=== PATIENT | female | born 1935 | race Caucasian/White ===

== ENCOUNTER 2022-04-16 22:36 | Emergency (ER) | payer SELFPAY ==
--- NOTE | 2022-04-16 22:47 | PC.NURSE ---
Called pt for triage but she is going to the bathroom in the lobby
[2022-04-16 22:53] VITALS: BP 179/98; PULSE 78; RESP 18; TEMP 36.6; O2SAT 97; BMI 25.4
--- NOTE | 2022-04-16 23:01 | DI.CT.S_ITS ---
PROCEDURE: CT HEAD/BRAIN WO CON INDICATIONS: fell, hit head, on thinners TECHNIQUE: Noncontrast 5 mm thick angled axial sections acquired from the foramen magnum to the vertex, with coronal and sagittal reformats. For radiation dose reduction, the following was used: automated exposure control, adjustment of mA and/or kV according to patient size. COMPARISON: None. FINDINGS: Image quality: Excellent. CSF spaces: Basal cisterns are patent. No extra-axial fluid collections. There is moderate cerebral volume loss, with resultant ventricular and sulcal prominence. Brain: No intracranial hemorrhage, mass, or mass effect. There are subcortical, periventricular and deep white matter hypodensities consistent with moderate chronic small vessel ischemic changes. The silverio-white matter junction appears preserved. There is intracranial internal carotid artery atherosclerosis. Skull and face: Calvarium and visualized facial bones appear intact, without suspicious lesions. There is mild soft tissue swelling in the forehead region. Sinuses: Visualized sinuses demonstrate sequelae of prior sinus surgery. There is mucosal thickening within the visualized ethmoid, maxillary, and sphenoid sinuses. Mastoid air cells are clear. IMPRESSION: 1. No acute intracranial abnormality. 2. Moderate cerebral volume loss and chronic white matter small vessel ischemic changes. Dictated by: Davon Frost M.D. on 04/16/2022 at 23:26 Approved by: Davon Frost M.D. on 04/16/2022 at 23:28
--- NOTE | 2022-04-17 00:11 | ED_ITS ---
HPI - Fall General Chief Complaint: Fall Stated Complaint: GLF hit her head, blood thinners Time Seen by Provider: 04/17/22 00:11 Mode of arrival: Wheelchair History of Present Illness HPI Narrative: 87-year-old female nonsmoker with history of AFib on anticoagulation presents with her son and a chief complaint of a ground level fall and head injury resulting in a laceration. She states that she stumbled forward getting off the toilet and struck her head. She has full recall and denies any blurred vision, vomiting or loss of consciousness. She has no chest pain or shortness of breath and denies other injury. She is activated as a modified trauma given head injury on anticoagulant Related Data Allergies Allergy/AdvReac Type Severity Reaction Status Date / Time No Known Drug Allergies Allergy Verified 04/16/22 22:59 Review of Systems Review of Systems Narrative: GENERAL: Denies chills, fatigue, malaise, fever, sweats. HEENT: Denies sinus pain, ear pain, sore throat, difficulty swallowing, dizziness. RESPIRATORY: Denies dyspnea, cough, wheezing, hemoptysis, sputum. CARDIOVASCULAR: Denies chest pain, palpitations, orthopnea, edema, GASTROINTESTINAL: Denies nausea, vomiting, abdominal pain, diarrhea, constipation, melena. : Denies dysuria, frequency, incontinence, hematuria, urinary retention. MUSCULOSKELETAL: denies weakness, joint pain, or bony pain SKIN: See HPI NEUROLOGIC: Denies weakness, headache, numbness, change in speech, confusion, seizures, incoordination. PSYCHIATRIC: No concerning psychosocial issues. 12 point review of systems is negative except for those stated above Patient History Social History Smoking Status: Never smoker Smoking Status: Never smoker alcohol intake frequency: 0-2 drinks per day Substance Use Type: does not use Exam Narrative Exam Narrative: GENERAL: [87] year old patient appears stated age. Well-developed patient, in mild distress. GCS 15 HEAD: 1.5 cm stellate laceration with adjacent skin tear on forehead, no evidence of depressed skull fracture EYES: Pupils equal round and reactive. No hyphema Extraocular motions intact. No scleral icterus. No injection or drainage. ENT: Nose without bleeding, purulent drainage. Throat without erythema, tonsillar hypertrophy or exudate. Airway patent. NECK: Trachea midline. Non tender CARDIOVASCULAR: Regular rate and rhythm without murmurs, gallops, or rubs. RESPIRATORY: Clear to auscultation. Breath sounds equal bilaterally. No wheezes, rales, or rhonchi. GASTROINTESTINAL: Abdomen soft, non-tender, nondistended. EXTREMITIES: No edema or joint tenderness. BACK: Nontender without deformity or crepitance. No flank tenderness. NEURO: AOx3. SKIN: No rash or erythema of visible areas Initial Vital Signs Initial Vital Signs: Vital Signs Temperature 97.8 F 04/16/22 22:53 Pulse Rate 78 04/16/22 22:53 Respiratory Rate 18 04/16/22 22:53 Blood Pressure 179/98 H 04/16/22 22:53 Pulse Oximetry 97 04/16/22 22:53 Oxygen Delivery Method 04/16/22 22:53 Procedures Laceration Repair Laceration 1: Site: face Size (cm): 1.5 Description: stellate and clean Depth: simple, single layer Local Anesthetic: lidocaine 2% Amount of anesthesia used (mL): 3 Pre-repair: wound explored and cleansed with chlorhexadine Skin layer closed with: nylon Skin layer suture size: 5-0 Number of sutures: 3 Technique: simple, interrupted Course Orders Ordered: ED Orders 04/16/22 23:01 CT head/brain wo con Stat Vital Signs Vital signs: Vital Signs - 8 hr 04/16/22 22:53 Temperature 97.8 F Pulse Rate 78 Respiratory Rate 18 Blood Pressure 179/98 H Pulse Oximetry 97 Oxygen Delivery Method Room Air MDM - Fall Imaging Data CT scan - head: Radiologist's Impression: [place] [address] CT Scan Report Signed Patient: Yvonne Ennis MR#: [id number] : 1935 Acct:[id number] Age/Sex: 87 / F Date of Service: 04/16/22 Loc: ED Accession Number: [id number] ?? Procedure: CT head/brain wo con Ordering Provider: Buster Ling D.O. PROCEDURE:? CT HEAD/BRAIN WO CON ? INDICATIONS:? fell, hit head, on thinners ? TECHNIQUE:? Noncontrast 5 mm thick angled axial sections acquired from the foramen magnum to the vertex, with coronal and sagittal reformats.? For radiation dose reduction, the following was used:? automated exposure control, adjustment of mA and/or kV according to patient size.? ? COMPARISON:? None. ? FINDINGS:? Image quality:? Excellent.? ? CSF spaces:? Basal cisterns are patent.? No extra-axial fluid collections.? There is moderate cerebral volume loss, with resultant ventricular and sulcal prominence.? ? Brain:? No intracranial hemorrhage, mass, or mass effect.? There are subcortical, periventricular and deep white matter hypodensities consistent with moderate chronic small vessel ischemic changes.? The silverio-white matter junction appears preserved.? There is intracranial internal carotid artery atherosclerosis.? ? Skull and face:? Calvarium and visualized facial bones appear intact, without suspicious lesions.? There is mild soft tissue swelling in the forehead region.? ? Sinuses:? Visualized sinuses demonstrate sequelae of prior sinus surgery.? There is mucosal thickening within the visualized ethmoid, maxillary, and sphenoid sinuses.? Mastoid air cells are clear. ? IMPRESSION:? ? 1. No acute intracranial abnormality. ? 2. Moderate cerebral volume loss and chronic white matter small vessel ischemic changes.? Dictated by: Davon Frost M.D. on 04/16/2022 at 23:26 ? ? Approved by: Davon Frost M.D. on 04/16/2022 at 23:28 ? Discharge Plan Departure Patient Disposition: Home Clinical Impression: Laceration of face Instructions: DI for Laceration Repair, How to Prevent Falls Activity Restrictions/Additional Instructions: *You have been diagnosed with [fall with forehead laceration, as we discussed the CT scan of your brain showed no bleeding or fracture] *What to do: *Please continue to take your regular medications as directed. [x ] No new medications given Please keep the wound clean and dry to the best of your ability. Please monitor for signs of infection such as redness to the skin or increasing pain. Have the sutures/erik removed by your doctor in about 7 days. If you are unable to get into your doctor, we would be happy to remove the sutures/erik in that same timeframe. *If you do not have a primary care provider please contact the [facility] Resource line at [phone]. They will ask some questions about your medical history and help get you set up with a doctor in the community. *Return to Emergency Department if you should have any new, worsening or concerning symptoms, such as [fever greater than 101 F, shaking chills, worsening pain, persistent vomiting or other bothersome symptoms] Visit Report Forms: Patient Portal/API
[2022-04-17 00:39] VITALS: O2SAT 95
[2022-04-17 00:40] VITALS: BP 179/94; PULSE 66; O2SAT 95
[2022-04-17] MEDS: BACITRACIN OINT 0.9 GM PCKT 1 APPLIC TOP (00:41)
== END 2022-04-17 00:50 | disposition home or self-care (01) ==
PROVIDERS: Emergency Provider Emergency Medicine
DX: S01.81XA Laceration without foreign body of other part of head, initial encounter (principal); W19.XXXA Unspecified fall, initial encounter; Z79.01 Long term (current) use of anticoagulants
CPT/HCPCS: 12011; 70450; 99282; 99284